=== PATIENT | male | born 2000 ===

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

== ENCOUNTER 2023-03-19 03:14 | Emergency (ER) | payer SELFPAY ==
[~2023-03-19] VITALS: Ht 195 cm; Wt 131.0 kg
[2023-03-19 03:38] VITALS: BP 127/66
--- NOTE | 2023-03-19 03:49 | ED Integumentary General ---
General Chief Complaint: Allergic Reaction Stated Complaint: ALCOHOL POISONING Nursing Triage Note: ITCHY RASH TO BILATERAL ARMS, UPPER CHEST. ALCOHOL INTOXICATION. Source: patient Exam Limitations: intoxication History of Present Illness Date Seen by Provider: Mar 19, 2023 Time Seen by Provider: 03:44 Initial Comments PT ARRIVES VIA POV PT STATES HE NOTICED AN ITCHY RASH TO HIS ARMS, HANDS, AND UPPER CHEST ABOUT AN HOUR AGO HE STATES THAT NOW IT IS STARTING TO GO AWAY--NO LONGER ITCHING, NO LONGER ON HIS ARMS OR HANDS NO SWELLING ANYWHERE NO DIFFICULTY BREATHING OR SWALLOWING OR TALKING NO HISTORY OF SIMILAR DENIES ANY MEDICAL PROBLEMS OR MEDICATIONS PT HAS BEEN DRINKING UNKNOWN AMOUNT OF ALCOHOL TONIGHT PT IS CURRENTLY CHEWING AND SPITTING TOBACCO DURING HISTORY AND EXAM Allergies and Home Medications Allergies Coded Allergies: No Known Drug Allergies (Unverified , 03/19/23) Patient Home Medication List Home Medication List Reviewed: Yes No Active Prescriptions or Reported Meds Review of Systems Review of Systems Constitutional: no symptoms reported EENTM: no symptoms reported Respiratory: no symptoms reported Cardiovascular: no symptoms reported Musculoskeletal: see HPI Skin: see HPI Psychiatric/Neurological: No Symptoms Reported Past [id number] Hx Patient Social History Tobacco Use?: Yes Substance use?: Yes Substance type: Marijuana Alcohol Use?: Yes Alcohol Frequency: Once in a while Pt feels they are or have been: No Immunizations Up To Date First/Initial COVID19 Vaccinat: na Past Medical History Surgery/Hospitalization HX: DENTAL, ACL REPAIR, MRSA INFECTION Surgeries: Yes Orthopedic Respiratory: No Cardiac: No Neurological: No Genitourinary: No Gastrointestinal: No Musculoskeletal: Yes (KNEE SURGERY) Endocrine: No HEENT: Yes (DENTAL SURGERY) Cancer: No Integumentary: Yes (MRSA) Blood Disorders: No Physical Exam Vital Signs Vital Signs - First Documented 03/19/23 03:38 Temp 36.1 Pulse 105 Resp 16 B/P (MAP) 127/66 (86) Pulse Ox 97 O2 Delivery Room Air Capillary Refill : Less Than 3 Seconds General Appearance: WD/WN, no apparent distress, other (CHEWING AND SPITTING TOBACCO CONSTANTLY, RECLINING IN CHAIR, WITH ONE LEG HANGING OVER ARM OF CHAIR. DOES NOT APPEAR TO BE IN ANY DISCOMFORT OR DISTRESS. REEKS OF ALCOHOL BUT SPEECH IS CLEAR AND GAIT IS STEADY) HEENT: other (NO SWELLING OF LIPS OR TONGUE) Cardiovascular: regular rate, rhythm Respiratory: normal breath sounds, no respiratory distress, no accessory muscle use Extremities: normal inspection, normal capillary refill Neurologic/Psychiatric: no motor/sensory deficits, alert, oriented x 3 Skin: normal color, warm/dry, rash (PATCHY URTICARIAL RASH TO UPPER CHEST AND SHOULDERS. ) Progress/Results/Core Measures Results/Orders Vital Signs/I&O 03/19/23 03:38 Temp 36.1 Pulse 105 Resp 16 B/P (MAP) 127/66 (86) Pulse Ox 97 O2 Delivery Room Air Blood Pressure Mean: 86 Progress Progress Note : Progress Note OFFERED MEDICATIONS AND PT DECLINES, HE STATES THAT THE RASH IS GOING AWAY AND IT DOESN'T ITCH ANY MORE PT WISHES TO GO HOME DISCUSSED ANTICIPATED COURSE, SYMPTOMATIC TREATMENT, NEED FOR FOLLOW UP AND RETURN PRECAUTIONS Departure Impression Primary Impression: Hives of unknown origin Disposition: 01 HOME, SELF-CARE Condition: Stable Departure-Patient Inst. Decision time for Depature: 03:48 Referrals: NO,LOCAL PHYSICIAN (PCP/Family) Primary Care Physician Patient Instructions: Hives Add. Discharge Instructions: TAKE BENADRYL 50 MG EVERY 4 HOURS NEEDED FOR RASH AND ITCHING RETURN TO ER IF SYMPTOMS WORSEN All discharge instructions reviewed with patient and/or family. Voiced understanding. Scripts No Active Prescriptions or Reported Meds STEFANIE BUSTAMANTE DO Mar 19, 2023 03:49
== END 2023-03-19 03:52 | disposition home or self-care (01) ==
LOC: EDUNIT# 03:14 → ER 03:17
DX: L50.9 Urticaria, unspecified (principal)
CPT/HCPCS: 99281